=== PATIENT | female | born 1985 | race Caucasian/White ===

== ENCOUNTER 2019-10-29 09:29 | Outpatient (CLI) | payer OTHER, MEDICAID, SELFPAY ==
--- NOTE | 2019-10-29 10:13 | PM.OBTRLD ---
Visit Information Visit Information Date of evaluation: 10/29/19 On-call OB Provider: Amparo Forrest Reason for Evaluation: Yes rule out labor Comments/Additional reasons for admission: Patient is a 33-year-old with CECILIA of 11/30/19 who is currently 35 weeks and 3 days gestation. History is significant for 3 prior C-sections. She is from [place] but was camping locally. Today she started noticing some tightening of her abdomen lasting approximately 20 seconds. She did not go into labor with her previous pregnancies so was concerned she was going into labor. Denies bleeding or leaking. Reports good movement. She thinks she has been drinking plenty of water though was unable to urinate in the center. Vital Signs Vital Signs: Blood pressure 125/86 heart rate 80 PFSH Surgical History (Updated 10/29/19 @ 11:11 by Amparo Forrest DO) H/O: (Acute) Evaluation Evaluation Baseline heart rate: 140 Variability: Moderate (11-25) monitor accelerations: Present monitor decelerations: Absent Uterine Contraction Intensity: Mild Category of Tracing: I Cervical dilation (cm): 0 Cervical effacement (%): 50 station: -4 Diagnosis, Plan/Disposition Plan/Disposition Plan: 33-year-old at 35 weeks and 3 days gestation with concern for labor. She did not have contractions on the monitor and denied feeling contractions in the center. Cervix was reportedly finger tip/50%/high and posterior per RN. Patient was encouraged to hydrate. Okay to discharge home and follow-up with primary OB. OB Disposition: home
== END 2019-10-29 10:10 | disposition home or self-care (01) ==
LOC: LABOR 10:18 → OB 14:43
PROVIDERS: Referring Provider Family Medicine; Visit Provider Family Medicine
DX: O47.03 False labor before 37 completed weeks of gestation, third trimester (principal); O99.333 Smoking (tobacco) complicating pregnancy, third trimester; Z3A.35 35 weeks gestation of pregnancy
CPT/HCPCS: 59025; G0378; G0379